=== PATIENT | male | born 2000 | race Caucasian/White ===

== ENCOUNTER 2021-12-30 03:09 | Emergency (ER) | payer MEDICAID ==
[~2021-12-30] VITALS: Ht 172.7 cm; Wt 98.0 kg
[2021-12-30] MEDS ORDERED: DEXAMETHASONE 10 MG/ML VIAL PO ONE (04:00)
[2021-12-30] MEDS ORDERED: KETOROLAC 30MG/ML VIAL IM ONE (04:00)
[2021-12-30] MEDS ORDERED: DEXAMETHASONE 4MG TABLET PO NR (04:45)
[2021-12-30] MEDS ORDERED: TOPUD MT (05:15)
[2021-12-30 05:35] VITALS: BP 128/80
== END 2021-12-30 05:41 | disposition home or self-care (01) ==
LOC: ER 03:09
DX: J02.9 Acute pharyngitis, unspecified (principal); R03.0 Elevated blood-pressure reading, without diagnosis of hypertension; Z20.822 Contact with and (suspected) exposure to COVID-19
CPT/HCPCS: 87070; 87426; 87430; 96372; 99283; J1885; J1100; J8540